=== PATIENT | female | born 1965 | race African-American/Black ===

== ENCOUNTER 2017-01-12 06:12 | Emergency (ER) | payer OTHER ==
--- NOTE | 2017-01-12 06:48 | EDPHY ---
H & P Time Seen by Provider: 01/12/17 06:46 HPI/ROS: CHIEF COMPLAINT: Headache HISTORY OF PRESENT ILLNESS: Patient is a history of chronic and recurrent migraine headaches and is followed by physician assistant casino shift manager Manny Majano, at associated neurologist. Previous visit history from June 12 and October 20 in October 07 of last year personally reviewed. Her headache started 36 hours ago and was not sudden onset or the worst of life. She presents with her typical symptoms including a right-sided headache associated with nausea and photophobia which does not radiate. Symptoms severe. Not helped by her Topamax and Imitrex which she used at home. She says this is identical to multiple previous migraine headaches. REVIEW OF SYSTEMS: Eye: no change in vision ENT: Right ear pain but no drainage Cardiac: No chest pain Pulmonary: Not short of breath Abdomen: no vomiting, diarrhea, abdominal pain Musculoskeletal: no back pain, no neck pain, no recent trauma or injury. Skin: no rash Neuro: No weakness or numbness in extremities, no vertigo or ataxia. Constitutional: no fever : no urinary symptoms A comprehensive 10 point review of systems is otherwise negative aside from elements mentioned in the history of present illness. PAST MEDICAL HISTORY: Includes lupus, migraines, thyroid disease, tubal ligation and partial hysterectomy Social history: Driven here by her daughter General Appearance: Alert and conversant, cooperative. Eyes: No scleral icterus. Extraocular motion intact and no proptosis. ENT, Mouth: Normal mucous membranes. Normal tympanic membranes and external canals bilaterally. No facial swelling. No trismus. Normal pharynx. Respiratory: Normal respiratory effort, breath sounds equal, lungs are clear to auscultation. Cardiovascular: Regular rate and rhythm. Gastrointestinal: Abdomen is soft and non tender. Neurological: Alert and oriented x3. Normally conversant. Face symmetric, normal movement and sensation in all extremities. Normal [id number] bilaterally and no pronator drift. Toes downgoing. Ambulatory without ataxia. Skin: Warm and dry, no rashes. Musculoskeletal: Normal range of motion of the neck, no meningeal signs. Psychiatric: Not agitated. Emergency Department course/MDM: Patient history sleep been treated successfully with Toradol, Dilaudid, Benadryl , and Phenergan. She says she has received these medications prior despite her listed allergies without any adverse effects. She also says that she is received intravenous magnesium before which helped she would like to try that again. Dilaudid 1 mg IV, Toradol 30 mg IV, Benadryl 50 mg IV, Phenergan 12.5 mg IV. 2 g magnesium. 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 755: Alert, feeling better, fluent speech. 805: Requesting additional IV pain medication, additional 0.5 mg IV Dilaudid given, then stable for discharge. Smoking Status: Never smoked Constitutional: Initial Vital Signs Temperature (C) 36.9 C 01/12/17 06:18 Heart Rate 79 01/12/17 06:18 Respiratory Rate 18 01/12/17 06:18 Blood Pressure 149/118 H 01/12/17 06:18 O2 Sat (%) 96 01/12/17 06:18 O2 Delivery Mode Room Air Allergies/Adverse Reactions: Penicillins Allergy (Severe, Verified 01/12/17 06:21) swells up acetaminophen [From Tylenol] Allergy (Intermediate, Verified 01/12/17 06:21) Hives codeine Allergy (Intermediate, Verified 01/12/17 06:21) Hives metoclopramide HCl [From Reglan] Allergy (Intermediate, Verified 01/12/17 06:21) Hives morphine Allergy (Intermediate, Verified 01/12/17 06:21) Hives adhesive tape Allergy (Mild, Verified 01/12/17 06:21) Rash doxycycline Allergy (Mild, Verified 01/12/17 06:21) Rash prochlorperazine [From Compazine] Allergy (Mild, Verified 01/12/17 06:21) Rash prochlorperazine edisylate [From Compazine] Allergy (Verified 01/12/17 06:21) prochlorperazine maleate [From Compazine] Allergy (Verified 01/12/17 06:21) steroids Allergy (Intermediate, Uncoded 06/12/16 18:10) Hives Home Medications: Medication Instructions Recorded Yolanda Allergy 05/26/15 Maxalt 05/26/15 Ondansetron 05/26/15 Plaquenil 200 mg (RX) 05/26/15 Synthroid 05/26/15 Vitamin D3 05/26/15 IMITREX 06/10/15 Folic Acid [Folic Acid 1 MG (*)] 1 mg PO DAILY 06/12/16 Lansoprazole [Prevacid] 60 mg PO DAILY 06/12/16 Losartan Potassium [Cozaar 50 mg 50 mg PO 06/12/16 (*)] Topiramate [Topamax 25MG (*)] 25 mg PO DAILY 06/12/16 Medical Decision Making Consult/Admit Bed Type: Yola Majano 813am - Data Points Medications Given: Discontinued Medications Diphenhydramine HCl (Benadryl Injection) 50 mg IVP EDNOW ONE Stop: 01/12/17 06:59 Last Admin: 01/12/17 07:35 Dose: 50 mg Hydromorphone HCl (Dilaudid) 1 mg IVP EDNOW ONE Stop: 01/12/17 06:57 Last Admin: 01/12/17 07:35 Dose: 1 mg Sodium Chloride (Ns) 1,000 mls @ 0 mls/hr IV ONCE ONE; Wide Open PRN Reason: Protocol Stop: 01/12/17 06:57 Last Admin: 01/12/17 07:36 Dose: 1,000 mls Magnesium Sulfate (Magnesium Sulf 2 Gm (Premix)) 50 mls @ 50 mls/hr IV EDNOW ONE Stop: 01/12/17 07:56 Last Admin: 01/12/17 07:35 Dose: 50 mls Ketorolac Tromethamine (Toradol) 30 mg IVP EDNOW ONE Stop: 01/12/17 06:57 Last Admin: 01/12/17 07:35 Dose: 30 mg Promethazine HCl (Phenergan) 12.5 mg IVP EDNOW ONE Stop: 01/12/17 06:57 Last Admin: 01/12/17 07:37 Dose: 12.5 mg Departure - Departure Disposition: Home, Routine, Self-Care Clinical Impression: Headache, migraine Qualifiers: Migraine type: unspecified Status migrainosus presence: without status migrainosus Intractability: not intractable Qualified Code(s): G43.909 - Migraine, unspecified, not intractable, without status migrainosus Condition: Good Instructions: Migraine Headache (ED) Referrals: Grant Majano PA [Physician Prepress Specialist] - As per Instructions Michelle Maldonado MD [Medical Doctor] - As per Instructions
[2017-01-12] MEDS ORDERED: NS 1,000 ML IV ONE (06:56)
[2017-01-12] MEDS ORDERED: KETOROLAC 30 MG/1 ML SDV IVP ONE (06:56)
[2017-01-12] MEDS ORDERED: PROMETHAZINE HCL 25 MG/ML INJ IVP ONE (06:56)
[2017-01-12] MEDS ORDERED: HYDROmorphONE/DILAUDID 1 MG/ML SYR IVP ONE ×2 (06:56→08:06)
[2017-01-12] MEDS ORDERED: MAGNESIUM SULF 2 GM/WATER 50 ML IV ONE (06:57)
[2017-01-12 07:39] VITALS: RESP 16
[2017-01-12 08:36] VITALS: BP 133/86; PULSE 81; TEMP 97.9; O2SAT 95
== END 2017-01-12 08:36 | disposition home or self-care (01) ==
DX: G43.909 Migraine, unspecified, not intractable, without status migrainosus (principal); E86.9 Volume depletion, unspecified
CPT/HCPCS: 96365; 96375; 96376; 99284; J1170; J1200; J1885; J2550